=== PATIENT | male | born 1955 | race Asian ===

== ENCOUNTER 2018-09-09 14:48 | Emergency (ER) | payer SELFPAY ==
[~2018-09-09] VITALS: Ht 172.7 cm; Wt 90.0 kg
[~2018-09-09 14:48] MED LIST: ATROPINE SULFATE 1MG/10ML SYR ONE; CALCIUM CHLORIDE 1GM/10ML SYR IV ONE; EPINEPHRINE 0.1MG/ML (1:10,000) 10ML SYR ONE; SODIUM BICARBONATE 7.5% 0.9 MEQ/ML 50ML SYR IV ONE
[2018-09-09 14:56] VITALS: BP 0/0
== END 2018-09-09 14:56 | disposition expired ==
LOC: ER 14:48
DX: I46.9 Cardiac arrest, cause unspecified (principal)
CPT/HCPCS: 31500; 36556; 36680; 82962; 92950; 99291; J0461; J3490; 94002